=== PATIENT | male | born 1955 | race Asian ===

== ENCOUNTER 2017-04-02 07:31 | Inpatient (IN) | payer MEDICARE ==
[2017-04-02] VITALS (7 sets, daily range): BP systolic 119–149
[~2017-04-02] VITALS: Ht 172.7 cm; Wt 84.8 kg
--- NOTE | 2017-04-02 07:45 | NUR ---
Patient to ER bed 8 to gown for evaluation. Side rails up. Report given to Neptali VELIZ.
--- NOTE | 2017-04-02 07:48 | NUR ---
Pt presents to ED c/o RLQ abd pain x 1 day w/o nausea/vomiting. Pt h/o htn,depression.Pt has no rebound tenderness upon assessment,abd soft and nondistended. Pt ambulates steady gait w/o assit. No acute distress noted.
--- NOTE | 2017-04-02 07:50 | NUR ---
# 20 gauge angiocath placed to RAC. Use of asceptic technique. Opsite placed over site. Blood return noted. Blood for lab drawn from site. Flushed with 10 cc of normal saline. No evidence of infiltration noted. Patient tolerated well.
--- NOTE | 2017-04-02 08:02 | NUR ---
ER at bedside examining patient.
[2017-04-02 08:37] LABS: BILIRUBIN,URINE NEGATIVE (NEGATIVE); BLOOD, URINE TRACE (NEGATIVE); CLARITY/URINE CLEAR (CLEAR); COLOR,URINE YELLOW (YELLOW); GLUCOSE,URINE NEGATIVE (NEGATIVE); KETONES,URINE NEGATIVE (NEGATIVE); LEUKOCYTE ESTERASE ,URINE NEGATIVE (NEGATIVE); NITRITE, URINE NEGATIVE (NEGATIVE); PROTEIN URINE NEGATIVE (NEGATIVE); UROBILINOGEN,URINE 0.2 (0.2-1.0)
[2017-04-02 08:38] LABS: HEMATOCRIT 38.5 % (36-54); HEMOGLOBIN 13.2 g/dL (14.0-18.0); MEAN CORPUSCULAR HEMOGLOBIN 32 pg (27-31); MEAN CORPUSCULAR HGB CONC 34 % (32-36); MEAN CORPUSCULAR VOLUME 93 fL (79.0-98.0); PLATELET COUNT (AUTO) 231 K/uL (130-430); RED BLOOD CELL COUNT(AUTO) 4.14 MIL/uL (4.2-6.2); RED CELL DISTRIBUTION WIDTH 11.6 % (9.0-15.0); WHITE BLOOD COUNT (AUTO) 10.9 K/uL (4.8-10.8)
[2017-04-02 08:41] LABS: CALCIUM 9.1 mg/dL (8.4-11.0); CREATININE 1.04 mg/dL (0.55-1.30); POTASSIUM 3.4 mmol/L (3.5-5.1)
[2017-04-02 08:44] LABS: ALBUMIN 4.1 g/dL (3.4-4.8); BACTERIA,URINE RARE /HPF (None Seen); RBC,URINE 0-3 /HPF (0-3); TOTAL BILIRUBIN 0.7 mg/dL (0.0-1.0); WBC,URINE 0-3 /HPF (0-3)
--- NOTE | 2017-04-02 08:55 | NUR ---
PT MEDICATED TOLERATING WELL.
[2017-04-02] MEDS ORDERED: MORPHINE 2 MG/ML INJ. SYRINGE IVP PRN (09:00)
[2017-04-02] MEDS ORDERED: PIPERACILLIN/TAZO 3.375 GM in NS 50 ML IV ONE (09:00)
[2017-04-02] MEDS ORDERED: ONDANSETRON HCL 4 MG/2 ML VIAL IVP PRN ×3 (09:00→14:00)
[2017-04-02] MEDS ORDERED: ASA81 PO (09:10)
[2017-04-02] MEDS ORDERED: NOR10 PO (09:10)
[2017-04-02] MEDS ORDERED: LIP40 PO (09:10)
[2017-04-02] MEDS ORDERED: SERT50TA12 PO (09:10)
[2017-04-02 09:12] LABS: ATYPICAL LYMPHOCYTES % 0 % (0-0); BAND % (MANUAL) 2 % (0-6); BASOPHILS % (MANUAL) 0 % (0-2); EOSINOPHILS % (MANUAL) 0 % (0-7); LYMPHOCYTES % (MANUAL) 7 % (20-46); MONOCYTES % (MANUAL) 7 % (0-11)
[2017-04-02] MEDS ORDERED: PIPERACILLIN/TAZOBACTAM 3.375 GM/VIAL (ZOSYN) IV ONE (09:18)
--- NOTE | 2017-04-02 09:25 | NUR ---
CONSULTATION PAGED REASON FOR CONSULTATION: APPENDICITIS WAS CONSULT CALLED? Y. PERSON WHO WAS NOTIFIED: IVETTE CONSULTING PHYSICIAN: EILEEN RICARDO SEAM FELLER SPECIALTY: GENERAL SENIOR PENSIONS ADMINISTRATOR PHONE NUMBER: [phone]. ORDERING PHYSICIAN: SIOMARA ESTRADA
--- NOTE | 2017-04-02 09:30 | NUR ---
Patient will be admitted to care of . Admitted to TELEMTERY unit. Will go to room 109. Belongings list completed. Summary report printed. Report will be given at bedside.
--- NOTE | 2017-04-02 09:47 | NUR ---
ADMISSION NOTE Received patient from ER via gurney. Patient admitted with diagnosis of Appendicitis. Patient is awake, alert, oriented X 4. Patient oriented to hospital room, call light, toileting, pain management and safety-teach back done. Patient informed that RN will be Gricel and that their room number is 109A. Personal belongings checked and Belongings List documented. Call light within reach.
[2017-04-02] MEDS: NACL 0.9% 1,000 ML IV SCH ×2 (10:08→15:09)
--- NOTE | 2017-04-02 10:15 | NUR ---
OPENING NOTE RECEIVED PATIENT REPORT FROM ADMISSION NURSE. PATIENT RESTING COMFORTABLY. NO COMPLAINTS OF PAIN AT THIS TIME, PAIN INCREASED WITH MOVEMENT. NO PAIN MEDICATION GIVEN IN E.D.. PATIENT HAS NO NOTABLE SIGNS OF DISTRESS AT THIS TIME. PATIENTS BED IN LOWEST POSITION, CALL LIGHT WITHIN REACH, AND SIDE RAILS ARE UP FOR SAFETY MEASURES. PATIENTS IV RUNNING PER MD ORDERS. WILL CONTINUE TO MONITOR PATIENT FOR CHANGES IN STATUS.
--- NOTE | 2017-04-02 10:21 | NUR ---
MD GONZALEZ CANSECO SPOKE WITH DR. CANSECO REGARDING PATIENTS OR CHECKLIST. ORDERS NEEDED FOR EKG, CXR, PTT, PT, TYPE AND SCREEN, AND MRSA. OKAY TO ORDER TESTS, ORDERS ENTERED BY KEREN.
[2017-04-02] MEDS ORDERED: ACETAMINOPHEN 325 MG TABLET PO PRN (11:30)
[2017-04-02 12:24] LABS: INR 0.9 (0.80-1.20); PROTHROMBIN TIME 10.3 SECS (9.5-12.5)
[2017-04-02 12:50] LABS: THYROID STIMULATING HORMONE 2.01 uIu/mL (0.34-4.82)
[2017-04-02] MEDS ORDERED: GLYCOPYRROLATE 0.2 MG/ML VIAL IJ ONE (12:51)
[2017-04-02] MEDS ORDERED: DEXAMETHASONE SOD PHOSPHATE 4 MG/ML VIAL IVP ONE (12:51)
[2017-04-02] MEDS ORDERED: NS 1000 ML BAG IV ONE (12:51)
[2017-04-02] MEDS ORDERED: SEVOFLURANE 15 MIN GAS INH ONE (12:51)
[2017-04-02] MEDS ORDERED: fentaNYL CITRATE 250 MCG/5 ML AMP IV ONE (12:51)
[2017-04-02] MEDS ORDERED: PROPOFOL 200MG/ 20ML VIAL (DIPRIVAN) IV ONE (12:51)
[2017-04-02] MEDS ORDERED: SUCCINYLCHOLINE CHLORIDE 20 MG/ML(QUELICIN) IVP ONE (12:51)
[2017-04-02] MEDS ORDERED: METOCLOPRAMIDE HCL 10 MG/2 ML VIAL IVP ONE (12:51)
[2017-04-02] MEDS ORDERED: BUPIVACAINE /EPINEPHRINE/PF 0.25% 30 ML VIAL INJ ONE (12:51)
[2017-04-02] MEDS ORDERED: MIDAZOLAM HCL 5 MG/5 ML VIAL IVP ONE (12:51)
[2017-04-02] MEDS: PIPERACILLIN/TAZO 3.375/DEX-IS 50 ML IV SCH ×2 (12:54→17:21)
--- NOTE | 2017-04-02 13:03 | NUR ---
1200 NOTE PATIENT RESTING COMFORTABLY. NO COMPLAINTS OF PAIN AT THIS TIME, PAIN INCREASED WITH MOVEMENT. NO PAIN MEDICATION GIVEN PRIOR TO SURGERY, PRE OP. PATIENT HAS NO NOTABLE SIGNS OF DISTRESS AT THIS TIME. PATIENTS BED IN LOWEST POSITION, CALL LIGHT WITHIN REACH, AND SIDE RAILS ARE UP FOR SAFETY MEASURES. PATIENTS IV RUNNING PER MD ORDERS. WILL CONTINUE TO MONITOR PATIENT FOR CHANGES IN STATUS. DR. MANCUSO WANTED PATIENT TO O.R., O.R. CHECKLIST COMPLETED IN CHART. LABS PRINTED, CALLED RADIOLOGY FOR CXR, AND RT FOR EKG COMPLETION. PATIENT AWAITING ZOSYN FROM PHARMACY. ADMINISTERED PRIOR TO TRANSFER TO OR. PATIENT MRSA SWAB COMPLETED AND TAKEN TO LAB. AWAITING PATIENTS RETURN TO UNIT POST OPERATIVELY.
[2017-04-02] MEDS ORDERED: LR 1,000 ML IV ONE (13:47)
[2017-04-02] MEDS ORDERED: ePHEDrine sulfate 50 MG/ML VIAL IVP PRN (14:00)
[2017-04-02] MEDS ORDERED: fentaNYL CITRATE/PF 100 MCG/2 ML AMP IVP PRN (14:00)
[2017-04-02] MEDS ORDERED: NALBUPHINE HCL 10 MG/ML AMP IVP PRN (14:00)
[2017-04-02] MEDS ORDERED: NALOXONE HCL 0.4 MG/ML AMP (NARCAN) IVP PRN (14:00)
[2017-04-02] MEDS ORDERED: DIPHENHYDRAMINE INJ 50 MG/ML VIAL IVP PRN (14:00)
[2017-04-02] MEDS ORDERED: KETOROLAC TROMETHAMINE 30 MG VIAL IM PRN (14:00)
[2017-04-02] MEDS ORDERED: DIPHENHYDRAMINE INJ 50 MG/ML VIAL ONE (14:07)
[2017-04-02] MEDS ORDERED: DIPHENHYDRAMINE INJ 50 MG/ML VIAL IVP ONE (14:15)
--- NOTE | 2017-04-02 14:40 | NUR ---
NOTE PATIENT STILL IN SURGERY. AWAITING ARRIVAL BACK TO UNIT.
[2017-04-02] MEDS: metroNIDAZOLE 500 mg/NS 100 ML IV SCH ×2 (15:08→20:54)
--- NOTE | 2017-04-02 15:18 | NUR ---
POST OP NOTE PATIENT RETURNED TO ROOM. PATIENT RESTING COMFORTABLY. NO COMPLAINTS OF PAIN AT THIS TIME, PAIN INCREASED WITH MOVEMENT. NO PAIN MEDICATION GIVEN PRIOR TO SURGERY, PRE OP. PATIENT HAS 3 SMALL DRESSING ON ABDOMEN. DRESSING BELOW UMBILICUS, SCANT AMOUNT OF RED DRAINAGE, NO SATURATION. PATIENT HAS NO NOTABLE SIGNS OF DISTRESS AT THIS TIME. PATIENTS BED IN LOWEST POSITION, CALL LIGHT WITHIN REACH, AND SIDE RAILS ARE UP FOR SAFETY MEASURES. PATIENTS IV RUNNING PER MD ORDERS. WILL CONTINUE TO MONITOR PATIENT FOR CHANGES IN STATUS.
--- NOTE | 2017-04-02 17:43 | NUR ---
NOTE SPOKE WITH DR. CANSECO REGARDING DIET ORDERS FOR PATIENT POST OPERATIVELY. CLEAR LIQUID DIET, ADVANCE TOLERATED.
--- NOTE | 2017-04-02 18:26 | NUR ---
1800/CLOSING NOTE AWAITING TO GIVE REPORT TO [employer] OPERATOR NURSE. PATIENT RESTING COMFORTABLY. NO COMPLAINTS OF PAIN AT THIS TIME, PAIN INCREASED WITH MOVEMENT. NO PAIN MEDICATION GIVEN PRIOR TO SURGERY, PRE OP. PATIENT HAS 3 SMALL DRESSING ON ABDOMEN. DRESSING BELOW UMBILICUS, SCANT AMOUNT OF RED DRAINAGE, NO SATURATION. PATIENT HAS NO NOTABLE SIGNS OF DISTRESS AT THIS TIME. PATIENTS BED IN LOWEST POSITION, CALL LIGHT WITHIN REACH, AND SIDE RAILS ARE UP FOR SAFETY MEASURES. PATIENTS IV RUNNING PER MD ORDERS. WILL CONTINUE TO MONITOR PATIENT FOR CHANGES IN STATUS.
[2017-04-02] MEDS: DOCUSATE SODIUM 100 MG CAPSULE PO SCH (20:53)
[2017-04-03] VITALS (7 sets, daily range): BP systolic 101–131
[2017-04-03] MEDS: PIPERACILLIN/TAZO 3.375/DEX-IS 50 ML IV SCH ×4 (00:13→19:29)
[2017-04-03] MEDS: NACL 0.9% 1,000 ML IV SCH ×2 (04:53→15:20)
[2017-04-03] MEDS: metroNIDAZOLE 500 mg/NS 100 ML IV SCH ×2 (04:53→15:13)
--- NOTE | 2017-04-03 06:44 | NUR ---
pt.presents stable status.pt.presents s/p surgery;appendectomy:04/02/17.pt.presents incision sites x3. no drainage dry/intact dsg.pt.presents iv fluids abx;ivpb,pt.utilizing the urinal and is ambulatory to the restroom.pt.was ordered diet:clear liquids;i have provided food irtems:pt.tolerated the food items;no nausea manifested.call ligth placed w/in the pt's reach.
--- NOTE | 2017-04-03 08:00 | NUR ---
Am shift note: RECEIVED PT A/O X4, C/O ABDOMINAL PAIN, 11/07 ,POST OP DAY ONE, DRESSING DRY AND INTACT. CLEAR LIQUID DIET. IV AT RT FA WITH NS AT 100ML /HR, AMBULATED WELL, VOIDING, BED AT LOW POSITION, CALL LIGHT WITHIN REACH.
[2017-04-03 08:18] LABS: HEMATOCRIT 35.4 % (36-54); HEMOGLOBIN 12.3 g/dL (14.0-18.0); LYMPHOCYTES % (AUTO) 8.2 % (20.5-51.5); MEAN CORPUSCULAR HEMOGLOBIN 32 pg (27-31); MEAN CORPUSCULAR HGB CONC 35 % (32-36); MEAN CORPUSCULAR VOLUME 93 fL (79.0-98.0); MONOCYTES # (AUTO) 0.7 K/uL (0.0-1.0); MONOCYTES % (AUTO) 6.2 % (1.7-9.3); NEUTROPHILS # (AUTO) 10.1 K/uL (1.8-7.7); NEUTROPHILS % (AUTO) 85.6 % (40.0-70.0); PLATELET COUNT (AUTO) 194 K/uL (130-430); RED CELL DISTRIBUTION WIDTH 11.5 % (9.0-15.0); WHITE BLOOD COUNT (AUTO) 11.8 K/uL (4.8-10.8)
[2017-04-03 08:28] LABS: ALBUMIN 3.2 g/dL (3.4-4.8); CALCIUM 8.8 mg/dL (8.4-11.0); CREATININE 1.07 mg/dL (0.55-1.30); POTASSIUM 4.1 mmol/L (3.5-5.1); TOTAL BILIRUBIN 1.1 mg/dL (0.0-1.0)
--- NOTE | 2017-04-03 09:30 | NUR ---
MEDS; ROUTINE MEDS GIVEN, PT TOLERATED WELL.
--- NOTE | 2017-04-03 10:30 | NUR ---
MD ROUNDING: SEEN BY , POSSIBLE D/C HOME TODAY.
[2017-04-03] MEDS: DOCUSATE SODIUM 100 MG CAPSULE PO SCH (10:53)
--- NOTE | 2017-04-03 12:40 | NUR ---
ROUNDING: PT WAS DOING WELL, NO C/O PAIN AT THIS TIME.
--- NOTE | 2017-04-03 14:30 | NUR ---
ROUNDING: PT WAS RESTING IN BED, CONTINUE TO MONITOR.
--- NOTE | 2017-04-03 17:20 | NUR ---
CHANDANA BRANTLEY: CALLED DR. CANSECO, PT NOVEMBER D/C TO HOME TODAY.
[2017-04-03] MEDS ORDERED: ONDA4TAB5 PO (17:30)
[2017-04-03] MEDS ORDERED: IBUP-1480 PO (17:30)
--- NOTE | 2017-04-03 19:15 | NUR ---
CLOSING ENDORSED TO KILN TESTER NURSE MONIQUE FOR CONTINUE CARE, POSSIBLE D/C HOME TODAY.
--- NOTE | 2017-04-03 20:15 | NUR ---
pt.assessed.v/s assessed;values w/in normal limits.pt.d/c home in stable condition. slight pain per pt.but tolerable.no requests for pain medication.pt.tolerated regular meals x2:lunch/dinner;no c/o nausea.bob dawn;rn prepared finalized the d/c paper work;escorted the pt.to car per wheel chair.pt.to schedule f/u appointment w/ surgeon.w/in 1 week.pt.is s/p surgery;appendectomy;dsg band aids x3 incision sites dsg;dry/intact.no drainage.pt's belongings accounted for.
--- NOTE | 2017-04-03 20:15 | NUR ---
pt/d/c home in [facility]
--- NOTE | 2017-04-04 14:29 | NUR ---
Appointment Scheduling Assistance HEARING AID DISPENSER received an order for appointment scheduling assistance. HEARING AID DISPENSER phoned patient, , and left a voicemail message with offer to make a follow up appointment with Dr Flores and also left Dr Flores's phone number. HEARING AID DISPENSER also left Social Service contact information. [employer] will remain available upon request.
[2017-04-05 03:12] LABS: T4 (THYROXINE) 6.3 ug/dL (4.5-12.0)
[2017-04-06 10:04] LABS: HEMOGLOBIN A1C 5.8 % (4.8-5.6)
== END 2017-04-03 20:10 | disposition home or self-care (01) | DRG 225 ==
LOC: SED 07:31 → STU 09:10 → SMU 13:02
PROVIDERS: ADMIT Family Medicine; ATTEND Family Medicine
PROC: 0DTJ4ZZ Resection of Appendix, Percutaneous Endoscopic Approach (ICD-10-PCS; principal; 2017-04-02 13:00)
DX: K35.80 Unspecified acute appendicitis (principal); E44.0 Moderate protein-calorie malnutrition; E78.5 Hyperlipidemia, unspecified; E87.6 Hypokalemia; F32.9 Major depressive disorder, single episode, unspecified; E87.1 Hypo-osmolality and hyponatremia; I10 Essential (primary) hypertension; Z79.82 Long term (current) use of aspirin; Z79.899 Other long term (current) drug therapy; Z68.28 Body mass index [BMI] 28.0-28.9, adult
CPT/HCPCS: 36415; 71010; 80053; 80061; 81000-TC; 82150-TC; 83036; 83690-TC; 83735-TC; 83880; 84100-TC; 84436; 84439; 84443-TC; 84479; 85007; 85025; 85027; 85610-TC; 85730-TC; 86886; 86900; 86901; 87070; 87070-TC; 87075-TC; 87081; 87186-TC; 88304; 93005; 96365; 99285; C1727; J0330; J1100; J1200; J2250; J2543; J2704; J2765; J3010; J3490; J7030

== ENCOUNTER 2017-04-16 18:42 | Inpatient (IN) | payer MEDICARE ==
[~2017-04-16] VITALS: Ht 172.7 cm; Wt 84.4 kg
[~2017-04-16 18:42] MED LIST: ASA81 PO; IBUP-1480 PO; LIP40 PO; NOR10 PO; ONDA4TAB5 PO; SERT50TA12 PO
[2017-04-16 19:02] VITALS: BP_SYST 166
[2017-04-16] MEDS ORDERED: NACL 0.9% 1,000 ML IV SCH ×2 (20:08→21:45)
[2017-04-16 20:22] LABS: BASOPHILS % (AUTO) 0.2 % (0.0-2.0); EOSINOPHILS # (AUTO) 0.1 K/uL (0.0-0.4); EOSINOPHILS % (AUTO) 0.8 % (0.0-4.0); HEMOGLOBIN 12.4 g/dL (14.0-18.0); LYMPHOCYTES # (AUTO) 0.9 K/uL (1.0-5.5); LYMPHOCYTES % (AUTO) 7.8 % (20.5-51.5); MEAN CORPUSCULAR HEMOGLOBIN 31 pg (27-31); MEAN CORPUSCULAR HGB CONC 34 % (32-36); MEAN CORPUSCULAR VOLUME 93 fL (79.0-98.0); MONOCYTES # (AUTO) 0.6 K/uL (0.0-1.0); MONOCYTES % (AUTO) 4.7 % (1.7-9.3); NEUTROPHILS # (AUTO) 10.5 K/uL (1.8-7.7); NEUTROPHILS % (AUTO) 86.5 % (40.0-70.0); PLATELET COUNT (AUTO) 323 K/uL (130-430); RED BLOOD CELL COUNT(AUTO) 3.97 MIL/uL (4.2-6.2); RED CELL DISTRIBUTION WIDTH 11.8 % (9.0-15.0); WHITE BLOOD COUNT (AUTO) 12.1 K/uL (4.8-10.8)
[2017-04-16 20:30] LABS: CALCIUM 9.1 mg/dL (8.4-11.0); CREATININE 1.08 mg/dL (0.55-1.30); POTASSIUM 3.6 mmol/L (3.5-5.1)
[2017-04-16 20:36] LABS: ALBUMIN 3.6 g/dL (3.4-4.8); TOTAL BILIRUBIN 0.4 mg/dL (0.0-1.0)
[2017-04-16 20:47] LABS: INR 0.9 (0.80-1.20); PROTHROMBIN TIME 10.3 SECS (9.5-12.5)
[2017-04-16 20:48] LABS: BILIRUBIN,URINE NEGATIVE (NEGATIVE); BLOOD, URINE NEGATIVE (NEGATIVE); CLARITY/URINE CLEAR (CLEAR); COLOR,URINE YELLOW (YELLOW); GLUCOSE,URINE NEGATIVE (NEGATIVE); KETONES,URINE TRACE (NEGATIVE); LEUKOCYTE ESTERASE ,URINE NEGATIVE (NEGATIVE); NITRITE, URINE NEGATIVE (NEGATIVE); PROTEIN URINE NEGATIVE (NEGATIVE); UROBILINOGEN,URINE 0.2 (0.2-1.0)
[2017-04-16] MEDS ORDERED: KETOROLAC TROMETHAMINE 30 MG VIAL IVP ONE (21:00)
[2017-04-16] MEDS ORDERED: ACETAMINOPHEN 500 MG TABLET PO ONE (21:00)
[2017-04-16] MEDS ORDERED: metroNIDAZOLE 500 mg/NS 100 ML IV ONE (21:30)
[2017-04-16] MEDS ORDERED: IBUP-1480 PO (21:34)
[2017-04-16] MEDS ORDERED: MORPHINE 4 MG/ML INJ. SYRINGE IVP PRN (21:45)
[2017-04-16] MEDS ORDERED: HYDROmorphone 1 MG INJ. 1 MG/ML AMPUL IVP PRN (21:45)
[2017-04-16 22:05] VITALS: BP_SYST 121
[2017-04-16 22:10] VITALS: BP_SYST 121
[2017-04-16] MEDS: NACL 0.9% 1,000 ML IV SCH (22:57)
[2017-04-16] MEDS ORDERED: ACETAMINOPHEN 325 MG TABLET PO PRN (23:00)
[2017-04-16] MEDS ORDERED: PANTOPRAZOLE SODIUM 40 MG/VIAL (PROTONIX) IVP ONE (23:00)
[2017-04-16] MEDS ORDERED: FLU VACC QS 2017-18(36MOS+)/PF 0.5 ML/SYR SYRINGE I.M. PRN (23:00)
[2017-04-16] MEDS ORDERED: ONDANSETRON HCL 4 MG/2 ML VIAL IVP PRN (23:00)
[2017-04-17] MEDS ORDERED: metroNIDAZOLE 500 mg/NS 100 ML IV ONE (00:52)
[2017-04-17] MEDS: metroNIDAZOLE 500 mg/NS 100 ML IV SCH ×5 (05:11→23:56)
[2017-04-17 07:26] VITALS: BP_SYST 106
[2017-04-17 07:51] LABS: PHOSPHORUS 3.1 mg/dL (2.7-4.5); THYROID STIMULATING HORMONE 2.24 uIu/mL (0.34-4.82)
[2017-04-17 08:11] LABS: FREE T4 (FREE THYROXINE) 1.1 ng/dl (0.8-1.5)
[2017-04-17] MEDS: PANTOPRAZOLE SODIUM 40 MG/VIAL (PROTONIX) IVP SCH (08:57)
[2017-04-17] MEDS: DOCUSATE SODIUM 100 MG CAPSULE PO SCH ×2 (09:00→21:19)
[2017-04-17 11:05] VITALS: BP_SYST 115
[2017-04-17 15:06] VITALS: BP_SYST 127
[2017-04-17] MEDS: NACL 0.9% 1,000 ML IV SCH (15:17)
[2017-04-17 19:35] VITALS: BP_SYST 121
[2017-04-17 23:36] VITALS: BP_SYST 118
[2017-04-18 04:04] VITALS: BP_SYST 97
[2017-04-18] MEDS: NACL 0.9% 1,000 ML IV SCH ×2 (04:29→16:10)
[2017-04-18] MEDS: metroNIDAZOLE 500 mg/NS 100 ML IV SCH ×4 (06:27→23:06)
[2017-04-18 08:01] LABS: BASOPHILS % (AUTO) 0.3 % (0.0-2.0); EOSINOPHILS # (AUTO) 0.1 K/uL (0.0-0.4); HEMATOCRIT 32.4 % (36-54); HEMOGLOBIN 11.3 g/dL (14.0-18.0); LYMPHOCYTES # (AUTO) 1.1 K/uL (1.0-5.5); MEAN CORPUSCULAR HEMOGLOBIN 33 pg (27-31); MEAN CORPUSCULAR HGB CONC 35 % (32-36); MEAN CORPUSCULAR VOLUME 94 fL (79.0-98.0); MONOCYTES # (AUTO) 0.8 K/uL (0.0-1.0); MONOCYTES % (AUTO) 8.3 % (1.7-9.3); NEUTROPHILS # (AUTO) 7.3 K/uL (1.8-7.7); NEUTROPHILS % (AUTO) 78.4 % (40.0-70.0); PLATELET COUNT (AUTO) 283 K/uL (130-430); RED BLOOD CELL COUNT(AUTO) 3.45 MIL/uL (4.2-6.2); RED CELL DISTRIBUTION WIDTH 11.9 % (9.0-15.0); WHITE BLOOD COUNT (AUTO) 9.3 K/uL (4.8-10.8)
[2017-04-18 08:08] VITALS: BP_SYST 106
[2017-04-18 08:16] LABS: PHOSPHORUS 3.1 mg/dL (2.7-4.5); POTASSIUM 3.6 mmol/L (3.5-5.1)
[2017-04-18 08:37] LABS: T4 (THYROXINE) 5.8 ug/dL (4.5-12.0)
[2017-04-18] MEDS ORDERED: amLODIPine BESYLATE 10 MG TABLET PO SCH (09:00)
[2017-04-18] MEDS: SERTRALINE HCL 50 MG TABLET PO SCH (09:05)
[2017-04-18] MEDS: PANTOPRAZOLE SODIUM 40 MG/VIAL (PROTONIX) IVP SCH (09:06)
[2017-04-18] MEDS: DOCUSATE SODIUM 100 MG CAPSULE PO SCH ×2 (09:06→21:00)
[2017-04-18] MEDS: ASPIRIN 81 MG TAB.CHEW PO SCH (09:06)
[2017-04-18] MEDS: ATORVASTATIN 20 MG TABLET PO SCH (09:06)
[2017-04-18 09:07] LABS: CALCIUM 8.4 mg/dL (8.4-11.0); CREATININE 0.95 mg/dL (0.55-1.30)
[2017-04-18 11:38] VITALS: BP_SYST 110
[2017-04-18 15:19] VITALS: BP_SYST 114
[2017-04-18 15:22] LABS: HEMOGLOBIN A1C 5.8 % (4.8-5.6)
[2017-04-18] MEDS ORDERED: BISACODYL 5 MG TABLET.DR (DULCOLAX) PO ONE (17:00)
[2017-04-18] MEDS ORDERED: GOLYTELY / COLYTE SOLUTION 4 LITERS PO ONE (18:00)
[2017-04-18] MEDS: AMPICILLIN SODIUM/SULBACTAM NA 3 GM in NS 100 ML IV SCH (18:21)
[2017-04-18 20:00] VITALS: BP_SYST 120
[2017-04-19] VITALS (7 sets, daily range): BP systolic 113–132
[2017-04-19] MEDS: AMPICILLIN SODIUM/SULBACTAM NA 3 GM in NS 100 ML IV SCH ×5 (00:10→23:04)
[2017-04-19] MEDS: metroNIDAZOLE 500 mg/NS 100 ML IV SCH ×4 (05:06→23:03)
[2017-04-19] MEDS: NACL 0.9% 1,000 ML IV SCH ×3 (05:07→23:04)
[2017-04-19] MEDS ORDERED: DIPHENHYDRAMINE INJ 50 MG/ML VIAL ONE (07:39)
[2017-04-19] MEDS ORDERED: SIMETHICONE 40 MG/0.6 ML ML ONE (07:40)
[2017-04-19 07:46] LABS: INR 1.2 (0.80-1.20); PROTHROMBIN TIME 12.7 SECS (9.5-12.5)
[2017-04-19] MEDS: PANTOPRAZOLE SODIUM 40 MG/VIAL (PROTONIX) IVP SCH (08:33)
[2017-04-19] MEDS: ATORVASTATIN 20 MG TABLET PO SCH (09:00)
[2017-04-19] MEDS: DOCUSATE SODIUM 100 MG CAPSULE PO SCH ×2 (09:00→21:00)
[2017-04-19] MEDS: ASPIRIN 81 MG TAB.CHEW PO SCH (09:00)
[2017-04-19] MEDS: SERTRALINE HCL 50 MG TABLET PO SCH (09:00)
[2017-04-19] MEDS: MIDAZOLAM HCL 5 MG/5 ML VIAL ONE ×4 (13:38→14:21)
[2017-04-19] MEDS: fentaNYL CITRATE/PF 100 MCG/2 ML AMP ONE ×4 (13:38→14:21)
[2017-04-20 00:43] VITALS: BP_SYST 120
[2017-04-20 05:09] VITALS: BP_SYST 115
[2017-04-20] MEDS: AMPICILLIN SODIUM/SULBACTAM NA 3 GM in NS 100 ML IV SCH ×2 (05:34→12:33)
[2017-04-20] MEDS: metroNIDAZOLE 500 mg/NS 100 ML IV SCH ×2 (05:34→11:38)
[2017-04-20 07:25] LABS: BASOPHILS % (AUTO) 0.5 % (0.0-2.0); EOSINOPHILS # (AUTO) 0.1 K/uL (0.0-0.4); EOSINOPHILS % (AUTO) 2.3 % (0.0-4.0); HEMATOCRIT 35.8 % (36-54); HEMOGLOBIN 12.2 g/dL (14.0-18.0); LYMPHOCYTES # (AUTO) 1.1 K/uL (1.0-5.5); LYMPHOCYTES % (AUTO) 25.1 % (20.5-51.5); MEAN CORPUSCULAR HEMOGLOBIN 32 pg (27-31); MEAN CORPUSCULAR HGB CONC 34 % (32-36); MEAN CORPUSCULAR VOLUME 94 fL (79.0-98.0); MONOCYTES # (AUTO) 0.3 K/uL (0.0-1.0); MONOCYTES % (AUTO) 5.8 % (1.7-9.3); NEUTROPHILS % (AUTO) 66.3 % (40.0-70.0); PLATELET COUNT (AUTO) 361 K/uL (130-430); RED CELL DISTRIBUTION WIDTH 11.5 % (9.0-15.0); WHITE BLOOD COUNT (AUTO) 4.5 K/uL (4.8-10.8)
[2017-04-20 07:58] LABS: CREATININE 1.01 mg/dL (0.55-1.30); POTASSIUM 3.5 mmol/L (3.5-5.1)
[2017-04-20 08:35] VITALS: BP_SYST 129
[2017-04-20] MEDS: ATORVASTATIN 20 MG TABLET PO SCH (09:00)
[2017-04-20] MEDS: ASPIRIN 81 MG TAB.CHEW PO SCH (09:00)
[2017-04-20] MEDS: PANTOPRAZOLE SODIUM 40 MG/VIAL (PROTONIX) IVP SCH (09:00)
[2017-04-20] MEDS: DOCUSATE SODIUM 100 MG CAPSULE PO SCH (09:15)
[2017-04-20] MEDS ORDERED: AMOX-426 PO (10:27)
[2017-04-20] MEDS ORDERED: METR500T PO (10:27)
[2017-04-20] MEDS: NACL 0.9% 1,000 ML IV SCH (10:36)
[2017-04-20] MEDS: SERTRALINE HCL 50 MG TABLET PO SCH (10:38)
[2017-04-20 13:15] VITALS: BP_SYST 131
[2017-04-20 13:24] VITALS: BP_SYST 131
== END 2017-04-20 14:52 | disposition home or self-care (01) | DRG 720 ==
LOC: SED 18:42 → STU 21:37 → SMU 04-18 15:59
PROVIDERS: ADMIT Family Medicine; ATTEND Family Medicine
PROC: 0DBP8ZX Excision of Rectum, Via Natural or Artificial Opening Endoscopic, Diagnostic (ICD-10-PCS; 2017-04-19)
PROC: 0DBH8ZX Excision of Cecum, Via Natural or Artificial Opening Endoscopic, Diagnostic (ICD-10-PCS; principal; 2017-04-19 09:00)
DX: A41.9 Sepsis, unspecified organism (principal); K65.9 Peritonitis, unspecified; F32.9 Major depressive disorder, single episode, unspecified; E78.5 Hyperlipidemia, unspecified; K52.89 Other specified noninfective gastroenteritis and colitis; K62.89 Other specified diseases of anus and rectum; Z90.49 Acquired absence of other specified parts of digestive tract; Z79.82 Long term (current) use of aspirin; Z79.899 Other long term (current) drug therapy
CPT/HCPCS: 36415; 71010; 80048; 80053; 80061; 81003; 82150-TC; 83036; 83605; 83690-TC; 83735-TC; 83880; 84100-TC; 84436; 84439; 84443-TC; 84479; 84484; 85025; 85610-TC; 85730-TC; 87040-TC; 87045-TC; 87081; 87230-TC; 88305; 89055; 96361; 96374; 99285; C9113; J0295; J1200; J1885; J1956; J2250; J2405; J3010; J3490; J7030; Q2037